=== PATIENT | female | born 1995 | race Caucasian/White ===

== ENCOUNTER 2018-02-02 02:00 | Inpatient (IN) | payer BC, MEDICAID ==
[2018-02-02] MEDS ORDERED: Zolpidem 5 MG Tab PO PRN (02:49)
[2018-02-02] MEDS ORDERED: Misoprostol 50 MCG (1/2 of 100 MCG) Tab ONE (07:12)
[2018-02-02] MEDS ORDERED: ePHEDrine 50 MG/ML SDV IVPUSH ONE (07:26)
[2018-02-02] MEDS ORDERED: Sodium Chloride 0.9% 10 ML Syringe FLUSH PRN (07:26)
[2018-02-02] MEDS ORDERED: Lactated Ringers 1,000 ML IV ONE (07:26)
[2018-02-02] MEDS ORDERED: Acetaminophen 500 MG Tab PO PRN (07:30)
[2018-02-02] MEDS ORDERED: Misoprostol 50 MCG (1/2 of 100 MCG) Tab VAG ONE (07:30)
[2018-02-02] MEDS ORDERED: fentaNYL 100 MCG/2 ML SDV IVPUSH ONE (07:30)
[2018-02-02] MEDS ORDERED: Ondansetron 4 MG/2 ML SDV IVPUSH ONE (07:31)
--- NOTE | 2018-02-02 07:38 | PCM.LDHP ---
L&D History of Present Illness - General Date of Service: 02/02/18 (labor) Admit Problem/Dx: Patient Status Order with Admit Dx/Problem 02/02/18 07:26 Patient Status [ADT] Routine Admission Diagnosis/Problem Admission Diagnosis/Problem Abdominal pain during Source of Information: Patient History Limitations: Reports: No Limitations - History of Present Illness Introduction:: This 22 year old who is 40 3/7 weeks presented with contractions during the night. Lives over an hour away so stay and slept here although not well. HAd Ambien 5 mg to help with sleep. Currently is nauseated. Was shae regularly through the night, initial CE 2/75/0. Has had adequate care and uneventful . ABO A pos HIV neg Rubella immune GBS negative Timing/Duration: Reports: minutes: (3) Location, : Reports: Abdomen Quality: Reports: Pressure Severity: Moderate Improves with: Reports: None Worsens with: Reports: None - Related Data Allergies/Adverse Reactions: Allergies Allergy/AdvReac Type Severity Reaction Status Date / Time amoxicillin Allergy Hives Verified 09/26/17 21:02 Home Medications: Home Meds [id number]/Iron Fumarate/FA/DSS [ 19 Tablet] 1 each PO BEDTIME 09/26/17 [ History] Past Medical History FLOOR SURFACER History: Reports: : 1 Para: 0 LMP (Approximate): H&P Review of Systems - Review of Systems: Review Of Systems: See Below General: Reports: No Symptoms HEENT: Reports: No Symptoms Pulmonary: Reports: No Symptoms Cardiovascular: Reports: No Symptoms Gastrointestinal: Reports: Nausea, Vomiting Genitourinary: Reports: No Symptoms Musculoskeletal: Reports: No Symptoms Skin: Reports: No Symptoms Psychiatric: Reports: No Symptoms Neurological: Reports: No Symptoms Hematologic/Lymphatic: Reports: No Symptoms Immunologic: Reports: No Symptoms L&D Exam - Exam Exam: See Below - Vital Signs Vital Signs: Last Vital Signs Temp 97.2 F 02/02/18 02:20 Pulse 62 02/02/18 02:20 Resp 20 02/02/18 02:20 BP 118/65 02/02/18 02:20 Pulse Ox 98 02/02/18 02:20 Weight: 182 lb - OB Specific Contraction Duration (sec): 80-110 Contraction Frequency (min): 1.5-6.5 Contraction Intensity: Moderate Movement: Active Heart Tones: Present Heart Rate (FHR) Variability: Moderate (6-25 bmp) Presentation: Vertex Estimated Weight: 8 pounds - Mclean Score Mclean Score Cervix Position: Anterior Mclean Score Consistency: Soft Mclean Score Effacement: >80% Mclean Score Dilation: 3-4 cm Mclean Score 's Station: -1 ,0 Mclean Score Total: 11 - Exam General: Alert, Oriented HEENT: PERRLA, Conjunctiva Clear, EACs Clear, EOMI, Hearing Intact, Mucosa Moist & [place], Nares Patent, Normal Nasal Septum, Posterior Pharynx Clear, TMs Clear Neck: Supple, Trachea Midline Lungs: Clear to Auscultation, Normal Respiratory Effort Cardiovascular: Regular Rate, Regular Rhythm GI/Abdominal Exam: Normal Bowel Sounds, Soft, Non-Tender, Pelvis Stable Rectal Exam: Normal Exam Genitourinary: Normal external exam, Cervical dilitation, Enlarged uterus Back Exam: Normal Inspection, Full Range of Motion Extremities: Normal Inspection, Normal Range of Motion, Non-Tender, No Pedal Edema, Normal Capillary Refill Skin: Warm, Dry, Intact Neurological: Cranial Nerves Intact, Reflexes Equal Bilateral Psychiatric: Alert, Normal Affect, Normal Mood - Problem List (1) SNOMED Code(s): 81258602 ICD Code: Z34.90 - ENCNTR FOR SUPRVSN OF NORMAL , UNSP, UNSP TRIMESTER Status: Acute Current Visit: Yes Qualifiers: Weeks of gestation: 40 weeks Qualified Code(s): Z3A.40 - 40 weeks gestation of Problem List Initiated/Reviewed/Updated: Yes Orders Last 24hrs: Active Orders 24 hr Category Date Time Status Patient Status [ADT] Routine ADT 02/02/18 07:26 Ordered Communication Order [RC] ASDIRECTED Care 02/02/18 07:26 Ordered Heart Tones [RC] PER UNIT ROUTINE Care 02/02/18 07:26 Ordered Non Stress Test [RC] Click to Edit Care 02/02/18 07:26 Ordered Insert Urinary Catheter [OM.PC] ASDIRECTED Care 02/02/18 07:30 Ordered Local Anesthetic Infusion Pump [RC] ASDIRECTED Care 02/02/18 07:26 Ordered May Shower [RC] ASDIRECTED Care 02/02/18 07:26 Ordered Notify Provider Vital Signs [RC] PRN Care 02/02/18 07:26 Ordered Notify Provider [RC] PRN Care 02/02/18 07:26 Ordered OB Check [OM.PC] Click to Edit Care 02/02/18 02:08 Ordered PCEA Epidural [RC] ASDIRECTED Care 02/02/18 07:26 Ordered PCEA Epidural [RC] ASDIRECTED Care 02/02/18 07:27 Ordered Up ad Cheryle [RC] ASDIRECTED Care 02/02/18 07:26 Ordered Urinary Catheter Assessment [RC] ASDIRECTED Care 02/02/18 07:27 Ordered Vital Signs [RC] PER UNIT ROUTINE Care 02/02/18 07:26 Ordered Regular Diet [DIET] Diet 02/02/18 Dinner Ordered CBC W/O DIFF,HEMOGRAM [HEME] Routine Lab 02/02/18 07:29 Ordered DRUG SCREEN, URINE [URCHEM] Routine Lab 02/02/18 07:29 Ordered Acetaminophen [Tylenol Extra Strength] Med 02/02/18 07:30 Ordered 500 mg PO Q4H PRN Lactated Ringers [Ringers, Lactated] 1,000 ml Med 02/02/18 07:26 Ordered IV .BOLUS Ondansetron [Zofran] Med 02/02/18 07:31 Once 4 mg IVPUSH ONETIME ONE Oxytocin/Normal Saline [Pitocin in NS 20 Units/1,000 ML Med 02/02/18 07:30 Ordered ] 20 unit in 1,000 ml IV ONETIME Sodium Chloride 0.9% [Saline Flush] Med 02/02/18 07:26 Ordered 10 ml FLUSH ASDIRECTED PRN Zolpidem [Ambien] Med 02/02/18 02:49 Active 5 mg PO BEDTIME PRN ePHEDrine [ePHEDrine Sulfate] Med 02/02/18 07:26 Once 5 mg IVPUSH ONETIME ONE fentaNYL [Sublimaze] Med 02/02/18 07:30 Once 100 mcg IVPUSH ONETIME ONE miSOPROStol [Cytotec] Med 02/02/18 07:30 Ordered 50 mcg VAG ONETIME Epidural Catheter Management [OM.PC] Urgent Oth 02/02/18 07:26 Ordered Saline Lock Insert [OM.PC] Routine Oth 02/02/18 07:26 Ordered Resuscitation Status Routine Resus Stat 02/02/18 07:26 Ordered Medication Orders Acetaminophen (Tylenol Extra Strength) 500 mg PO Q4H PRN PRN Reason: Abdominal Pain Ephedrine Sulfate (Ephedrine Sulfate) 5 mg IVPUSH ONETIME ONE Stop: 02/02/18 07:27 Fentanyl (Sublimaze) 100 mcg IVPUSH ONETIME ONE Stop: 02/02/18 07:31 Lactated Ringer's (Ringers, Lactated) 1,000 mls @ 999 mls/hr IV .BOLUS ONE Stop: 02/02/18 08:26 Oxytocin/Sodium Chloride (Pitocin In Ns 20 Units/1,000 Ml) 20 unit in 1,000 mls @ 999 mls/hr IV ONETIME ONE; Protocol Stop: 02/02/18 08:30 Misoprostol (Cytotec) 50 mcg VAG ONETIME JESSIKA Ondansetron HCl (Zofran) 4 mg IVPUSH ONETIME ONE Stop: 02/02/18 07:32 Sodium Chloride (Saline Flush) 10 ml FLUSH ASDIRECTED PRN PRN Reason: Keep Vein Open Zolpidem Tartrate (Ambien) 5 mg PO BEDTIME PRN PRN Reason: Insomnia Last Admin: 02/02/18 03:07 Dose: 5 mg Assessment/Plan Comment:: 02/02/18 22 yr old 40 3/7 weeks, shae regularly and starting to make cervical change. Plan: misoprostol 50 mcg vaginally placed at 0715 monitor for active labor epidural when she start to progress anticipate a vaginal delivery later today
[2018-02-02] MEDS ORDERED: Lactated Ringers 1,000 ML IV SCH (09:15)
[2018-02-02] MEDS ORDERED: ePHEDrine 50 MG/ML SDV ONE (09:33)
[2018-02-02] MEDS ORDERED: Ropivacaine 100 ML ONE (09:59)
[2018-02-02] MEDS ORDERED: Naloxone 0.4 MG/ML SDV IVPUSH PRN (10:13)
[2018-02-02] MEDS ORDERED: Ropivacaine 100 ML EPIDUR SCH (10:13)
[2018-02-02] MEDS ORDERED: ePHEDrine 50 MG/ML SDV IV PRN (10:13)
[2018-02-02] MEDS ORDERED: diphenhydrAMINE 50 MG/ML SDV IVPUSH PRN (10:13)
--- NOTE | 2018-02-02 10:45 | ANES ---
DATE OF SERVICE: 02/02/2018 INDICATION: Flaquita is a 22-year-old female patient of Ashley Oglesby. I was asked to consult the patient for labor epidural placement. I discussed with her history as well as reviewed her labs and found no contraindication to epidural placement. After risks and benefits were discussed, she was okay to proceed and consent was received. DESCRIPTION OF PROCEDURE: I had her seated at the edge of the bed. Betadine prep x3 to the lumbar region. Sterile drape was placed, 1% lidocaine skin wheal as well as deep at the L3- 4 region. A 17-gauge Tuohy was placed with loss of resistance. Negative CSF, negative heme, and negative paresthesia. I inserted catheter to 12 cm. Needle was removed. The drape was removed, and her catheter was secured after a test dose of 3 mL of 1.5% lidocaine with 1:200,000 epinephrine with negative sequelae. I then placed her in the supine position, dosed her with 12 mL of 0.2% ropivacaine, and began an infusion of that same 0.2% ropivacaine at 12 mL. She did begin to have some relief shortly after first injection. Please refer to the nurse's notes for vital signs and neuro status, which were unchanged and within normal limits. I reported off to the nurse the procedure, as well as how she tolerated it. No questions. Again, she tolerated the procedure quite well. Thank you for the consult. Kj Moscoso CRNA /[id number]
[2018-02-02] MEDS ORDERED: Lanolin 100% Cream 40 GM Tube TOP PRN (13:10)
[2018-02-02] MEDS ORDERED: Acetaminophen 325 MG Tab, 50 Tab Bulk Bottle PO PRN (13:13)
[2018-02-02] MEDS ORDERED: Ibuprofen 200 MG Tab, 24 Tab Bulk Bottle PO PRN (13:13)
--- NOTE | 2018-02-02 13:22 | PCM.DEL ---
L & D Note - General Info Date of Service: 02/02/18 (Childbirth) Mother's Due Date: 01/30/18 - Delivery Note Labor: Spontaneous Cervical Ripening Method: Misoprostil Delivery Outcome: Livebirth Delivery Method: Spontaneous Vaginal Delivery-Single Infant Delivery Mode: Spontaneous Presentation: Vertex Nuchal Cord: Present (times 2), Reduced Anesthesia Type: Epidural Amniotic Fluid Description: Clear Episiotomy Type: None Laceration: None Placenta: Intact, Spontaneous Cord: 3 Vessels Estimated Blood Loss: 0 Resuscitation Needed: No [place]: Bulb Syringe, Stimulated, Warmed, [place] Used Provider: Ashley Oglesby Score 1 min: 9 Score 5 min: 10 Second Stage Interventions: Reports: Second Nurse Reviewed Heart Tones, Encouragement Given, Pushing Effectively, Pushing, McRobert's Position Delivery Comments (Free Text/Narrative):: This 22 year old G1 now P1 who is 40 3/7 weeks delivered via at 1248 a viable female over an intact perineum in JOVANNI position with a nuchal cord times two which was reduced. The baby was placed on mother's chest skin to skin where she was dried and stimulated. She cried spontaneously of 9,10. three vessel cord. The placenta was expressed spontaneously intact, ofelia. No lacerations of the cervix, vagina, perineum or rectum were found. EBL zero mother and baby to post and nursery in stable condition. first stage 3846-3906 Second stage 5071-8681 third stage 0770-7753 Induction Criteria - Mclean Score Mclean Score Dilation: 3-4 cm Mclean Score Effacement: >80% Mclean Score Infant's Station: -1 ,0 Mclean Score Consistency: Soft Mclean Score Cervix Position: Anterior Mclean Score Total: 11 Mclean Score Presenting Part: Reports: Cephalic - Augmentation Estimated Pelvis: Reports: Adequate Weight Estimated:: Reports: AGA Reassuring Monitoring Strip: Yes Absence of Tachy Systole: Yes - General Info Date of Service: 02/02/18 Admission Dx/Problem (Free Text): Patient Status Order with Admit Dx/Problem 02/02/18 07:26 Patient Status [ADT] Routine Admission Diagnosis/Problem Admission Diagnosis/Problem Abdominal pain during Functional Status: Reports: Pain Controlled - Review of Systems General: Reports: No Symptoms HEENT: Reports: No Symptoms Pulmonary: Reports: No Symptoms Cardiovascular: Reports: No Symptoms Gastrointestinal: Reports: No Symptoms Genitourinary: Reports: No Symptoms Musculoskeletal: Reports: No Symptoms Skin: Reports: No Symptoms Neurological: Reports: No Symptoms Psychiatric: Reports: No Symptoms - Patient Data Vitals - Most Recent: Last Vital Signs Temp 97.1 F 02/02/18 07:25 Pulse 70 02/02/18 10:05 Resp 18 02/02/18 07:25 BP 105/56 L 02/02/18 10:05 Pulse Ox 99 02/02/18 10:05 Weight - Most Recent: 182 lb 0.006 oz I&O - Last 24 Hours: Intake & Output 02/01/18 02/02/18 02/02/18 22:59 06:59 14:59 Output Total 50 Balance -50 Lab Results Last 24 Hours: Laboratory Results - last 24 hr 02/02/18 02/02/18 Range/Units 07:29 07:29 WBC 12.0 H (4.5-11.0) K/uL RBC 4.69 (3.30-5.50) M/uL Hgb 13.8 (12.0-15.0) g/dL Hct 40.9 (36.0-48.0) % MCV 87 (80-98) fL MCH 29 (27-31) pg MCHC 34 (32-36) % Plt Count 241 (150-400) K/uL Urine Opiates Screen Negative (NEGATIVE) Ur Oxycodone Screen Negative (NEGATIVE) Urine Methadone Screen Negative (NEGATIVE) Ur Propoxyphene Screen Negative (NEGATIVE) Ur Barbiturates Screen Negative (NEGATIVE) Ur Tricyclics Screen Negative (NEGATIVE) Ur Phencyclidine Scrn Negative (NEGATIVE) Ur Amphetamine Screen Negative (NEGATIVE) U Methamphetamines Scrn Negative (NEGATIVE) Urine MDMA Screen Negative (NEGATIVE) U Benzodiazepines Scrn Negative (NEGATIVE) U Cocaine Metab Screen Negative (NEGATIVE) U Marijuana (THC) Screen Negative (NEGATIVE) Med Orders - Current: Current Medications Acetaminophen (Tylenol Extra Strength) 500 mg PO Q4H PRN PRN Reason: Abdominal Pain Diphenhydramine HCl (Benadryl) 25 mg IVPUSH Q6H PRN PRN Reason: ITCHING Emollient Ointment (Lansinoh Hpa) 1 gm TOP ASDIRECTED PRN PRN Reason: Sore Nipples Ephedrine Sulfate (Ephedrine Sulfate) 5 - 10 mg IV ASDIRECTED PRN PRN Reason: Systolic BP less than 100 Lactated Ringer's (Ringers, Lactated) 1,000 mls @ 100 mls/hr IV ASDIRECTED JESSIKA Last Admin: 02/02/18 09:42 Dose: 100 mls/hr Ropivacaine (Naropin 0.2%) 100 mls @ 0 mls/hr EPIDUR ASDIRECTED JESSIKA; Protocol Naloxone HCl (Narcan) 0.1 mg IVPUSH Q5M PRN PRN Reason: IF RESP RATE LESS THAN 6 Sodium Chloride (Saline Flush) 10 ml FLUSH ASDIRECTED PRN PRN Reason: Keep Vein Open Zolpidem Tartrate (Ambien) 5 mg PO BEDTIME PRN PRN Reason: Insomnia Last Admin: 02/02/18 03:07 Dose: 5 mg Discontinued Medications Ephedrine Sulfate (Ephedrine Sulfate) 5 mg IVPUSH ONETIME ONE Stop: 02/02/18 07:27 Ephedrine Sulfate (Ephedrine Sulfate) Confirm Administered Dose 50 mg .ROUTE .STK-MED ONE Stop: 02/02/18 09:34 Last Admin: 02/02/18 12:04 Dose: Not Given Fentanyl (Sublimaze) 100 mcg IVPUSH ONETIME ONE Stop: 02/02/18 07:31 Lactated Ringer's (Ringers, Lactated) 1,000 mls @ 999 mls/hr IV .BOLUS ONE Stop: 02/02/18 08:26 Last Admin: 02/02/18 08:04 Dose: 999 mls/hr Oxytocin/Sodium Chloride (Pitocin In Ns 20 Units/1,000 Ml) 20 unit in 1,000 mls @ 999 mls/hr IV ONETIME ONE; Protocol Stop: 02/02/18 08:30 Ropivacaine (Naropin 0.2%) Confirm Administered Dose 100 mls @ as directed .ROUTE .STK-MED ONE Stop: 02/02/18 10:00 Misoprostol (Cytotec) Confirm Administered Dose 50 mcg .ROUTE .STK-MED ONE Stop: 02/02/18 07:13 Last Admin: 02/02/18 07:34 Dose: Not Given Misoprostol (Cytotec) 50 mcg VAG ONETIME ONE Stop: 02/02/18 07:31 Last Admin: 02/02/18 07:18 Dose: 50 mcg Ondansetron HCl (Zofran) 4 mg IVPUSH ONETIME ONE Stop: 02/02/18 07:32 - Exam General: Alert, Oriented HEENT: Pupils Equal, Pupils Reactive, EOMI, Mucous Membr. Moist/[place] Neck: Supple Lungs: Clear to Auscultation, Normal Respiratory Effort Cardiovascular: Regular Rate, Regular Rhythm GI/Abdominal Exam: Normal Bowel Sounds, Soft, Non-Tender, No Organomegaly, No Distention, No Abnormal Bruit, No Mass, Pelvis Stable (Female) Exam: Normal External Exam, Cervical Dilatation, Enlarged Uterus, Heart Tones, Vaginal Bleeding Back Exam: Normal Inspection, Full Range of Motion Extremities: Normal Inspection, Normal Range of Motion, Non-Tender, No Pedal Edema, Normal Capillary Refill Skin: Warm, Dry, Intact Wound/Incisions: Healing Well Neurological: No New Focal Deficit Psy/Mental Status: Alert, Normal Affect, Normal Mood - Problem List & Annotations (1) SNOMED Code(s): 96705967 Code(s): Z34.90 - ENCNTR FOR SUPRVSN OF NORMAL , UNSP, UNSP TRIMESTER Status: Acute Current Visit: Yes Qualifiers: Weeks of gestation: 40 weeks Qualified Code(s): Z3A.40 - 40 weeks gestation of (2) Normal labor and delivery SNOMED Code(s): 70503692, 048712450 Code(s): O80 - ENCOUNTER FOR FULL-TERM UNCOMPLICATED DELIVERY Status: Acute Current Visit: Yes (3) () SNOMED Code(s): 739918466 Code(s): Z78.9 - OTHER SPECIFIED HEALTH STATUS Status: Acute Current Visit: Yes - Problem List Review Problem List Initiated/Reviewed/Updated: Yes - My Orders Last 24 Hours: My Active Orders 02/02/18 02:08 OB Check [OM.PC] Click to Edit 02/02/18 02:49 Zolpidem [Ambien] 5 mg PO BEDTIME PRN 02/02/18 07:26 Communication Order [RC] ASDIRECTED Local Anesthetic Infusion Pump [RC] ASDIRECTED May Shower [RC] ASDIRECTED Notify Provider Vital Signs [RC] PRN Notify Provider [RC] PRN Up ad Cheryle [RC] ASDIRECTED Vital Signs [RC] Q4H Sodium Chloride 0.9% [Saline Flush] 10 ml FLUSH ASDIRECTED PRN Epidural Catheter Management [OM.PC] Urgent Saline Lock Insert [OM.PC] Routine Resuscitation Status Routine 02/02/18 07:27 PCEA Epidural [RC] ASDIRECTED Urinary Catheter Assessment [RC] ASDIRECTED 02/02/18 07:30 Insert Urinary Catheter [OM.PC] ASDIRECTED Acetaminophen [Tylenol Extra Strength] 500 mg PO Q4H PRN 02/02/18 09:15 Lactated Ringers [Ringers, Lactated] 1,000 ml IV ASDIRECTED 02/02/18 13:10 Lanolin [Lansinoh HPA] 1 gm TOP ASDIRECTED PRN Assess Uterine Involution [WOMSER] Per Unit Routine DVT/VTE Prophylaxis Reflex [OM.PC] Routine 02/02/18 13:11 Patient Status [ADT] Routine Vital Signs [RC] PFP 02/02/18 13:12 Antiembolic Devices [RC] .Routine VTE/DVT Education [RC] Click to Edit Ice Therapy [OM.PC] Per Unit Routine Perineal Care [OM.PC] Per Unit Routine Peripheral IV Discontinue [OM.PC] Routine Sitz Bath [OM.PC] Per Unit Routine 02/02/18 13:13 Acetaminophen [Tylenol Bulk Bottle] 325 mg PO Q4H PRN Ibuprofen [Motrin Bulk Bottle] 600 mg PO Q6H PRN 02/02/18 Dinner Regular Diet [DIET] 02/03/18 05:11 CBC WITH AUTO DIFF [HEME] AM - Assessment Assessment:: 02/02/18 22 yr old 40 3/7 without complications breast feeding - Plan Plan:: 02/02/18 22 yr old 40 3/7 weeks, shae regularly and starting to make cervical change. Plan: misoprostol 50 mcg vaginally placed at 0715 monitor for active labor epidural when she start to progress anticipate a vaginal delivery later today 02/02/18 Routine cares 24-48 hour stay support cbc in am
--- NOTE | 2018-02-03 08:55 | PCM.PNPP ---
- General Info Date of Service: 02/03/18 (PPD 1) Admission Dx/Problem (Free Text): Patient Status Order with Admit Dx/Problem 02/02/18 07:26 Patient Status [ADT] Routine Admission Diagnosis/Problem Admission Diagnosis/Problem Abdominal pain during Functional Status: Reports: Pain Controlled - Review of Systems General: Reports: No Symptoms HEENT: Reports: No Symptoms Pulmonary: Reports: No Symptoms Cardiovascular: Reports: No Symptoms Gastrointestinal: Reports: No Symptoms Genitourinary: Reports: No Symptoms Musculoskeletal: Reports: No Symptoms Skin: Reports: No Symptoms Neurological: Reports: No Symptoms Psychiatric: Reports: No Symptoms Systems Review Comment:: flow light, mild cramping - Patient Data Vital Signs - Most Recent: Last Vital Signs Temp 97.2 F 02/03/18 08:29 Pulse 74 02/03/18 08:29 Resp 16 02/03/18 08:29 BP 113/64 02/03/18 08:29 Pulse Ox 99 02/03/18 08:29 Weight - Most Recent: 182 lb 0.006 oz I&O - Last 24 Hours: Intake & Output 02/02/18 02/03/18 02/03/18 22:59 06:59 14:59 Intake Total 2403 400 Output Total 400 Balance 2002 Lab Results - Last 24 Hours: Laboratory Results - last 24 hr 02/03/18 Range/Units 05:00 WBC 13.2 H (4.5-11.0) K/uL RBC 4.23 (3.30-5.50) M/uL Hgb 12.6 (12.0-15.0) g/dL Hct 37.7 (36.0-48.0) % MCV 89 (80-98) fL MCH 30 (27-31) pg MCHC 33 (32-36) % Plt Count 199 (150-400) K/uL Neut % (Auto) 76 H (36-66) % Lymph % (Auto) 14 L (24-44) % [place] % (Auto) 8 H (2-6) % Eos % (Auto) 1 L (2-4) % Baso % (Auto) 0 (0-1) % Med Orders - Current: Current Medications Acetaminophen (Tylenol Bulk Bottle) 325 - 650 mg PO Q4H PRN PRN Reason: Pain Last Admin: 02/02/18 15:04 Dose: 325 mg Diphenhydramine HCl (Benadryl) 25 mg IVPUSH Q6H PRN PRN Reason: ITCHING Emollient Ointment (Lansinoh Hpa) 0 gm TOP ASDIRECTED PRN PRN Reason: Sore Nipples Last Admin: 02/02/18 15:03 Dose: 1 applic Ibuprofen (Motrin Bulk Bottle) 600 mg PO Q6H PRN PRN Reason: Pain Last Admin: 02/02/18 15:04 Dose: 600 mg Sodium Chloride (Saline Flush) 10 ml FLUSH ASDIRECTED PRN PRN Reason: Keep Vein Open Zolpidem Tartrate (Ambien) 5 mg PO BEDTIME PRN PRN Reason: Insomnia Last Admin: 02/02/18 03:07 Dose: 5 mg Discontinued Medications Acetaminophen (Tylenol Extra Strength) 500 mg PO Q4H PRN PRN Reason: Abdominal Pain Ephedrine Sulfate (Ephedrine Sulfate) 5 mg IVPUSH ONETIME ONE Stop: 02/02/18 07:27 Last Admin: 02/02/18 14:53 Dose: Not Given Ephedrine Sulfate (Ephedrine Sulfate) Confirm Administered Dose 50 mg .ROUTE .STK-MED ONE Stop: 02/02/18 09:34 Last Admin: 02/02/18 12:04 Dose: Not Given Ephedrine Sulfate (Ephedrine Sulfate) 5 - 10 mg IV ASDIRECTED PRN PRN Reason: Systolic BP less than 100 Fentanyl (Sublimaze) 100 mcg IVPUSH ONETIME ONE Stop: 02/02/18 07:31 Last Admin: 02/02/18 14:53 Dose: Not Given Lactated Ringer's (Ringers, Lactated) 1,000 mls @ 999 mls/hr IV .BOLUS ONE Stop: 02/02/18 08:26 Last Admin: 02/02/18 08:04 Dose: 999 mls/hr Oxytocin/Sodium Chloride (Pitocin In Ns 20 Units/1,000 Ml) 20 unit in 1,000 mls @ 999 mls/hr IV ONETIME ONE; Protocol Stop: 02/02/18 08:30 Last Titration: 02/02/18 13:23 Dose: 125 mls/hr Lactated Ringer's (Ringers, Lactated) 1,000 mls @ 100 mls/hr IV ASDIRECTED JESSIKA Last Admin: 02/02/18 09:42 Dose: 100 mls/hr Ropivacaine (Naropin 0.2%) Confirm Administered Dose 100 mls @ as directed .ROUTE .STK-MED ONE Stop: 02/02/18 10:00 Ropivacaine (Naropin 0.2%) 100 mls @ 0 mls/hr EPIDUR ASDIRECTED [facility]; Protocol Misoprostol (Cytotec) Confirm Administered Dose 50 mcg .ROUTE .STK-MED ONE Stop: 02/02/18 07:13 Last Admin: 02/02/18 07:34 Dose: Not Given Misoprostol (Cytotec) 50 mcg VAG ONETIME ONE Stop: 02/02/18 07:31 Last Admin: 02/02/18 07:18 Dose: 50 mcg Naloxone HCl (Narcan) 0.1 mg IVPUSH Q5M PRN PRN Reason: IF RESP RATE LESS THAN 6 Ondansetron HCl (Zofran) 4 mg IVPUSH ONETIME ONE Stop: 02/02/18 07:32 Last Admin: 02/02/18 14:54 Dose: Not Given - Infant Interaction Disposition, : in Room with Family Interaction: Holding Infant Feeding: Attempted ; Nursed Fair/Poor Support Person: Significant Other - Recovery Exam Fundal Tone: Firm Fundal Level: At Umbilicus Fundal Placement: Midline Lochia Amount: Small Lochia Color: Rubra/Red Perineum Description: Intact, Minimal Bruising/Swelling Episiotomy/Laceration: None Bladder Status: Voiding - Exam General: Alert, Oriented HEENT: Pupils Equal, Pupils Reactive Neck: Supple Lungs: Clear to Auscultation, Normal Respiratory Effort Cardiovascular: Regular Rate, Regular Rhythm GI/Abdominal Exam: Soft, Non-Tender Extremities: Normal Inspection, Normal Range of Motion, No Pedal Edema Skin: Warm, Dry Neurological: No New Focal Deficit Psy/Mental Status: Alert, Normal Affect, Normal Mood - Problem List & Annotations (1) SNOMED Code(s): 98187543 Code(s): Z34.90 - ENCNTR FOR SUPRVSN OF NORMAL , UNSP, UNSP TRIMESTER Status: Acute Current Visit: Yes Qualifiers: Weeks of gestation: 40 weeks Qualified Code(s): Z3A.40 - 40 weeks gestation of (2) Normal labor and delivery SNOMED Code(s): 64545912, 162205180 Code(s): O80 - ENCOUNTER FOR FULL-TERM UNCOMPLICATED DELIVERY Status: Acute Current Visit: Yes (3) (infant) SNOMED Code(s): 875904701 Code(s): Z78.9 - OTHER SPECIFIED HEALTH STATUS Status: Acute Current Visit: Yes - Problem List Review Problem List Initiated/Reviewed/Updated: Yes - My Orders Last 24 Hours: My Active Orders 02/02/18 13:10 Lanolin [Lansinoh HPA] 0 gm TOP ASDIRECTED PRN Assess Uterine Involution [WOMSER] Per Unit Routine DVT/VTE Prophylaxis Reflex [OM.PC] Routine 02/02/18 13:11 Patient Status [ADT] Routine 02/02/18 13:12 Antiembolic Devices [RC] .Routine VTE/DVT Education [RC] Click to Edit Ice Therapy [OM.PC] Per Unit Routine Perineal Care [OM.PC] Per Unit Routine Peripheral IV Discontinue [OM.PC] Routine Sitz Bath [OM.PC] Per Unit Routine 02/02/18 13:13 Acetaminophen [Tylenol Bulk Bottle] 325 - 650 mg PO Q4H PRN Ibuprofen [Motrin Bulk Bottle] 600 mg PO Q6H PRN 02/02/18 Dinner Regular Diet [DIET] - Assessment Assessment:: 02/02/18 22 yr old 40 3/7 without complications breast feeding 01/03/18 Feeling well Needs help with Mood happy Flow light voiding without problem HGb 12.6 - Plan Plan:: 02/02/18 22 yr old 40 3/7 weeks, shae regularly and starting to make cervical change. Plan: misoprostol 50 mcg vaginally placed at 0715 monitor for active labor epidural when she start to progress anticipate a vaginal delivery later today 02/02/18 Routine cares 24-48 hour stay support cbc in am 02/03/18 Lots of work on today Home tomorrow
--- NOTE | 2018-02-04 08:03 | PCM.PNPP ---
- General Info Date of Service: 02/04/18 (PPD 2 D/C) Admission Dx/Problem (Free Text): Patient Status Order with Admit Dx/Problem 02/02/18 07:26 Patient Status [ADT] Routine Admission Diagnosis/Problem Admission Diagnosis/Problem Abdominal pain during Functional Status: Reports: Pain Controlled - Review of Systems General: Reports: No Symptoms HEENT: Reports: No Symptoms Pulmonary: Reports: No Symptoms Cardiovascular: Reports: No Symptoms Gastrointestinal: Reports: No Symptoms Genitourinary: Reports: No Symptoms Musculoskeletal: Reports: No Symptoms Skin: Reports: No Symptoms Neurological: Reports: No Symptoms Psychiatric: Reports: No Symptoms - General Info Date of Service: 02/04/18 - Patient Data Vital Signs - Most Recent: Last Vital Signs Temp 96.8 F 02/04/18 07:14 Pulse 64 02/04/18 07:14 Resp 16 02/04/18 07:14 BP 117/76 02/04/18 07:14 Pulse Ox 100 02/04/18 07:14 Weight - Most Recent: 182 lb 0.006 oz I&O - Last 24 Hours: Intake & Output 02/03/18 02/04/18 02/04/18 22:59 06:59 14:59 Intake Total 480 Balance 480 Med Orders - Current: Current Medications Acetaminophen (Tylenol Bulk Bottle) 325 - 650 mg PO Q4H PRN PRN Reason: Pain Last Admin: 02/02/18 15:04 Dose: 325 mg Diphenhydramine HCl (Benadryl) 25 mg IVPUSH Q6H PRN PRN Reason: ITCHING Emollient Ointment (Lansinoh Hpa) 0 gm TOP ASDIRECTED PRN PRN Reason: Sore Nipples Last Admin: 02/02/18 15:03 Dose: 1 applic Ibuprofen (Motrin Bulk Bottle) 600 mg PO Q6H PRN PRN Reason: Pain Last Admin: 02/02/18 15:04 Dose: 600 mg Sodium Chloride (Saline Flush) 10 ml FLUSH ASDIRECTED PRN PRN Reason: Keep Vein Open Zolpidem Tartrate (Ambien) 5 mg PO BEDTIME PRN PRN Reason: Insomnia Last Admin: 02/02/18 03:07 Dose: 5 mg Discontinued Medications Acetaminophen (Tylenol Extra Strength) 500 mg PO Q4H PRN PRN Reason: Abdominal Pain Ephedrine Sulfate (Ephedrine Sulfate) 5 mg IVPUSH ONETIME ONE Stop: 02/02/18 07:27 Last Admin: 02/02/18 14:53 Dose: Not Given Ephedrine Sulfate (Ephedrine Sulfate) Confirm Administered Dose 50 mg .ROUTE .STK-MED ONE Stop: 02/02/18 09:34 Last Admin: 02/02/18 12:04 Dose: Not Given Ephedrine Sulfate (Ephedrine Sulfate) 5 - 10 mg IV ASDIRECTED PRN PRN Reason: Systolic BP less than 100 Fentanyl (Sublimaze) 100 mcg IVPUSH ONETIME ONE Stop: 02/02/18 07:31 Last Admin: 02/02/18 14:53 Dose: Not Given Lactated Ringer's (Ringers, Lactated) 1,000 mls @ 999 mls/hr IV .BOLUS ONE Stop: 02/02/18 08:26 Last Admin: 02/02/18 08:04 Dose: 999 mls/hr Oxytocin/Sodium Chloride (Pitocin In Ns 20 Units/1,000 Ml) 20 unit in 1,000 mls @ 999 mls/hr IV ONETIME ONE; Protocol Stop: 02/02/18 08:30 Last Titration: 02/02/18 13:23 Dose: 125 mls/hr Lactated Ringer's (Ringers, Lactated) 1,000 mls @ 100 mls/hr IV ASDIRECTED JESSIKA Last Admin: 02/02/18 09:42 Dose: 100 mls/hr Ropivacaine (Naropin 0.2%) Confirm Administered Dose 100 mls @ as directed .ROUTE .STK-MED ONE Stop: 02/02/18 10:00 Ropivacaine (Naropin 0.2%) 100 mls @ 0 mls/hr EPIDUR ASDIRECTED [facility]; Protocol Misoprostol (Cytotec) Confirm Administered Dose 50 mcg .ROUTE .STK-MED ONE Stop: 02/02/18 07:13 Last Admin: 02/02/18 07:34 Dose: Not Given Misoprostol (Cytotec) 50 mcg VAG ONETIME ONE Stop: 02/02/18 07:31 Last Admin: 02/02/18 07:18 Dose: 50 mcg Naloxone HCl (Narcan) 0.1 mg IVPUSH Q5M PRN PRN Reason: IF RESP RATE LESS THAN 6 Ondansetron HCl (Zofran) 4 mg IVPUSH ONETIME ONE Stop: 02/02/18 07:32 Last Admin: 02/02/18 14:54 Dose: Not Given - Infant Interaction Infant Disposition, : [place] in Room with Family Interaction: Holding Infant Feeding: Breastfed Infant; Nursed Well Support Person: Significant Other - Recovery Exam Fundal Tone: Firm Fundal Level: 2 Fingerbreadths Below Umbilicus Fundal Placement: Midline Lochia Amount: Small Lochia Color: Rubra/Red Perineum Description: Intact, Minimal Bruising/Swelling Episiotomy/Laceration: None Bladder Status: Voiding Urinary Elimination: Voided - Exam General: Alert, Oriented HEENT: Pupils Equal Neck: Supple Lungs: Clear to Auscultation, Normal Respiratory Effort Cardiovascular: Regular Rate, Regular Rhythm GI/Abdominal Exam: Normal Bowel Sounds, Soft, Non-Tender, No Distention Extremities: Normal Inspection, Normal Range of Motion, Non-Tender, No Pedal Edema, Normal Capillary Refill Skin: Warm, Dry, Intact Wound/Incisions: Healing Well Neurological: No New Focal Deficit Psy/Mental Status: Alert, Normal Affect, Normal Mood - Problem List & Annotations (1) SNOMED Code(s): 66856447 Code(s): Z34.90 - ENCNTR FOR SUPRVSN OF NORMAL , UNSP, UNSP TRIMESTER Status: Acute Current Visit: Yes Qualifiers: Weeks of gestation: 40 weeks Qualified Code(s): Z3A.40 - 40 weeks gestation of (2) Normal labor and delivery SNOMED Code(s): 92801579, 978771602 Code(s): O80 - ENCOUNTER FOR FULL-TERM UNCOMPLICATED DELIVERY Status: Acute Current Visit: Yes (3) (infant) SNOMED Code(s): 056743945 Code(s): Z78.9 - OTHER SPECIFIED HEALTH STATUS Status: Acute Current Visit: Yes - Problem List Review Problem List Initiated/Reviewed/Updated: Yes - Assessment Assessment:: 02/02/18 22 yr old 40 3/7 without complications breast feeding 02/03/18 Feeling well Needs help with Mood happy Flow light voiding without problem HGb 12.6 02/04/18 as improved and latching to good. Light flow, mild cramping feeling good and ready for discharge - Plan Plan:: 02/02/18 22 yr old 40 3/7 weeks, shae regularly and starting to make cervical change. Plan: misoprostol 50 mcg vaginally placed at 0715 monitor for active labor epidural when she start to progress anticipate a vaginal delivery later today 02/02/18 Routine cares 24-48 hour stay support cbc in am 02/03/18 Lots of work on today Home tomorrow 02/04/18 Home today see me the first week of Nov for a post visit
== END 2018-02-04 09:05 | disposition home or self-care (01) | DRG 560 ==
LOC: JP.OBCHECK 02:00 → JP.OB 07:16 → OBSVTOIN 12:48 → JP.OB 12:48 → JP.MS 18:34
PROVIDERS: ADMIT Nurse Practitioner Family; ATTEND Nurse Practitioner Family
PROC: 10E0XZZ Delivery of Products of Conception, External Approach (ICD-10-PCS; principal; 2018-02-02)
PROC: 00HU33Z Insertion of Infusion Device into Spinal Canal, Percutaneous Approach (ICD-10-PCS; 2018-02-02)
DX: O69.81X0 Labor and delivery complicated by cord around neck, without compression, not applicable or unspecified (principal); Z3A.40 40 weeks gestation of pregnancy; Z37.0 Single live birth; Z88.1 Allergy status to other antibiotic agents
CPT/HCPCS: 36415; 51702; 59409; 80305-QW; 85025; 85027; 99211; A9270-GY; J2590; J2795; J7120

== ENCOUNTER 2021-02-22 07:11 | Inpatient (IN) | payer BC, MEDICAID ==
[2021-02-22] MEDS ORDERED: Misoprostol 50 MCG (1/2 of 100 MCG) Tab VAG ONE ×2 (07:21→07:22)
[2021-02-22] MEDS ORDERED: Ondansetron 4 MG/2 ML SDV IV PRN (08:12)
[2021-02-22] MEDS ORDERED: Calcium Carbonate 500 MG Tab.Chew PO PRN (08:12)
[2021-02-22] MEDS ORDERED: Sodium Chloride 0.9% 10 ML Syringe FLUSH PRN (08:12)
[2021-02-22] MEDS ORDERED: Lactated Ringers 1,000 ML IV SCH (08:15)
--- NOTE | 2021-02-22 08:25 | PCM.LDHP ---
L&D History of Present Illness - General Date of Service: 02/22/21 Admit Problem/Dx: Admission Diagnosis/Problem Admission Diagnosis/Problem 02/22/21 08:15 Induction of labor Source of Information: Patient History Limitations: Reports: No Limitations - History of Present Illness Introduction:: 02/23/12 Flaquita is a here at 40/4 weeks gestation for induction of labor. She is A pos blood type, GBS negative, rubella immune, Hep B/C negative, RPR negative, and recieved her Tdap at 28 weeks.She reports having contractions on and off over the last few days but nothing consistent. This morning around 0430 she said her contractions had picked up in intensity but then slowly went away. She did note some bloody show this morning. SVE on admission is 2/70/-2 soft and anterior for a Mclean score of 8. She is shae every 8 minutes on ad mission. EFM shows a Category 1 tracing. Timing/Duration: Reports: seconds:, minutes: (8), gradual onset, intermittent Location, : Reports: Abdomen Severity: Mild Associated Symptoms: Reports: vaginal discharge, mild amount (some bloody show this morning) - Related Data Allergies/Adverse Reactions: Allergies Allergy/AdvReac Type Severity Reaction Status Date / Time amoxicillin Allergy Hives Verified 02/22/21 07:32 Penicillins Allergy Hives Verified 02/22/21 07:32 Home Medications: Home Meds Prenat 115/Iron Fum/Folic/Dss [ 19 Tablet] 1 each PO BEDTIME 09/26/17 [History] Calcium Carbonate [Calcium] 500 mg PO DAILY 02/22/21 [History] Past Medical History Cardiovascular History: Reports: Arrhythmia [employer] History: Reports: Social & Family History - Family History Family Medical History: No Pertinent Family History - Tobacco Use Tobacco Use Status *Q: Never Tobacco User Second Hand Smoke Exposure: No - Caffeine Use Caffeine Use: Reports: Coffee Other Caffeine Use: occassionally - Recreational Drug Use Recreational Drug Use: No H&P Review of Systems - Review of Systems: Review Of Systems: See Below General: Reports: No Symptoms HEENT: Reports: No Symptoms Pulmonary: Reports: No Symptoms Cardiovascular: Reports: No Symptoms Gastrointestinal: Reports: No Symptoms Genitourinary: Reports: No Symptoms Musculoskeletal: Reports: No Symptoms Skin: Reports: No Symptoms Psychiatric: Reports: No Symptoms Neurological: Reports: No Symptoms Hematologic/Lymphatic: Reports: No Symptoms Immunologic: Reports: No Symptoms L&D Exam - Exam Exam: See Below - Vital Signs Weight: 182 lb - OB Specific Contraction Frequency (min): 8 Contraction Intensity: Mild Movement: Active Heart Tones: Present Heart Rate (FHR) Variability: Moderate (6-25 bpm) Presentation: Vertex - Mclean Score Mclean Score Cervix Position: Anterior Mclean Score Consistency: Soft Mclean Score Effacement: 51-70% Mclean Score Dilation: 1-2 cm Mclean Score 's Station: -2 Mclean Score Total: 8 - Exam General: Alert, Oriented HEENT: PERRLA, Conjunctiva Clear, EACs Clear, EOMI, Hearing Intact, Mucosa Moist & [place], Nares Patent, Normal Nasal Septum, Posterior Pharynx Clear, TMs Clear Neck: Supple, Trachea Midline Lungs: Clear to Auscultation, Normal Respiratory Effort Cardiovascular: Regular Rate, Regular Rhythm GI/Abdominal Exam: Normal Bowel Sounds, Soft, Non-Tender, No Organomegaly, No Distention, No Abnormal Bruit, No Mass, Pelvis Stable Rectal Exam: Normal Exam, Normal Rectal Tone Genitourinary: Normal external exam Back Exam: Normal Inspection, Full Range of Motion Extremities: Normal Inspection, Normal Range of Motion, Non-Tender, No Pedal Edema, Normal Capillary Refill Skin: Warm, Dry, Intact Neurological: Cranial Nerves Intact, Reflexes Equal Bilateral Psychiatric: Alert, Normal Affect, Normal Mood - Patient Data Lab Results Last 24 hrs: Laboratory Results - last 24 hr 02/22/21 02/22/21 02/22/21 Range/Units 07:20 07:21 07:22 WBC 11.4 H (4.5-11.0) K/uL RBC 4.17 (3.30-5.50) M/uL Hgb 11.8 L (12.0-15.0) g/dL Hct 35.9 L (36.0-48.0) % MCV 86 (80-98) fL MCH 28 (27-31) pg MCHC 33 (32-36) % Plt Count 233 (150-400) K/uL Neut % (Auto) 79.1 H (36-66) % Lymph % (Auto) 14.3 L (24-44) % [place] % (Auto) 5.9 (2-6) % Eos % (Auto) 0.4 L (2-4) % Baso % (Auto) 0.3 (0-1) % Urine Color Yellow (YELLOW) Urine Appearance Clear (CLEAR) Urine pH 7.0 (5.0-8.0) Ur Specific [place] 1.020 (1.008-1.030) Urine Protein Negative (NEGATIVE) mg/dL Urine Glucose (UA) Negative (NEGATIVE) mg/dL Urine Ketones Negative (NEGATIVE) mg/dL Urine Occult Blood Trace-intact H (NEGATIVE) Urine Nitrite Negative (NEGATIVE) Urine Bilirubin Negative (NEGATIVE) Urine Urobilinogen 0.2 (0.2-1.0) EU/dL Ur Leukocyte Esterase Moderate H (NEGATIVE) Urine RBC 0-5 (0-5) Urine WBC 5-10 H (0-5) Ur Epithelial Cells Moderate Amorphous Sediment Not seen Urine Bacteria Few Urine Mucus Not seen Urine Opiates Screen Negative (NEGATIVE) Ur Oxycodone Screen Negative (NEGATIVE) Urine Methadone Screen Negative (NEGATIVE) Ur Propoxyphene Screen Negative (NEGATIVE) Ur Barbiturates Screen Negative (NEGATIVE) Ur Tricyclics Screen Negative (NEGATIVE) Ur Phencyclidine Scrn Negative (NEGATIVE) Ur Amphetamine Screen Negative (NEGATIVE) U Methamphetamines Scrn Negative (NEGATIVE) Urine MDMA Screen Negative (NEGATIVE) U Benzodiazepines Scrn Negative (NEGATIVE) U Cocaine Metab Screen Negative (NEGATIVE) U Marijuana (THC) Screen Negative (NEGATIVE) Result Diagrams: 02/22/21 07:22 - Problem List (1) Encounter for induction of labor SNOMED Code(s): 018976265 ICD Code: Z34.90 - ENCNTR FOR SUPRVSN OF NORMAL , UNSP, UNSP TRIMESTER Status: Acute Current Visit: Yes (2) SNOMED Code(s): 23949473 ICD Code: Z34.90 - ENCNTR FOR SUPRVSN OF NORMAL , UNSP, UNSP TRIMESTER Status: Acute Current Visit: No Qualifiers: Weeks of gestation: 40 weeks Qualified Code(s): Z3A.40 - 40 weeks gestation of Problem List Initiated/Reviewed/Updated: Yes Orders Last 24hrs: Active Orders 24 hr Category Date Time Status OB Check [OM.PC] Click To Edit Care 02/22/21 07:20 Ordered Assessment/Plan Comment:: 02/22/21 Assessment: here at 40weeks 4 days Induction of labor Mclean score of 8 GBS negative Intends to breastfeed Desires epidural at some point in labor Adequate partner support Plan: Begin pitocin per protocol Continuous EFM Encourage oral hydration and nutrition Encourage walking, movement, and position change Recheck cervix in a few hours
[2021-02-22] MEDS ORDERED: fentaNYL 100 MCG/2 ML SDV ONE (13:05)
[2021-02-22] MEDS ORDERED: Benzocaine 20% Top Spray 56 GM Bottle TOP PRN (13:15)
[2021-02-22] MEDS ORDERED: Docusate Sodium 100 MG Cap PO PRN (13:15)
[2021-02-22] MEDS ORDERED: Lanolin 100% Cream 40 GM Tube TOP PRN (13:15)
[2021-02-22] MEDS ORDERED: Ibuprofen 200 MG Tab, 24 Tab Bulk Bottle PO PRN (13:17)
[2021-02-22] MEDS ORDERED: Acetaminophen 325 MG Tab, 50 Tab Bulk Bottle PO PRN (13:17)
--- NOTE | 2021-02-22 13:25 | PCM.DEL ---
<Jackie Calvin A - Last Filed: 02/22/21 13:19> L & D Note - General Info Date of Service: 02/22/21 Mother's Due Date: 02/18/21 - Delivery Note Labor: Induced by Oxytocin Cervical Ripening Method: Oxytocin Delivery Outcome: Livebirth Infant Delivery Method: Spontaneous Vaginal Delivery-Single Delivery Mode: Spontaneous Presentation: Left Occiput Anterior (JOVANNI) Nuchal Cord: Present, Reduced (Double nuchal) Anesthesia Type: Nitrous Oxide Amniotic Fluid Description: Clear Episiotomy Type: None Laceration: None Placenta: Intact, Spontaneous Cord: 3 Vessels Estimated Blood Loss: 200 Resuscitation Needed: No : Stimulated, [place] Used Score 1 min: 8 Score 5 min: 9 Second Stage Interventions: Reports: Second Nurse Assessed Progress of Descent, Second Nurse Reviewed Contraction Pattern, Second Nurse Reviewed Heart Tones, Encouragement Given, Pushing Effectively, Pushing, Knee Chest Position, Pushing, Right Side Delivery Comments (Free Text/Narrative):: Flaquita is a 25 year old G2 now P2 at 40 weeks and 4 days today. She is here for induction of labor with a mclean score of 8 on admission and already mild c ontracting. Pitocin was titrated throughout the day per protocol. She tolerated labor pains well with the use of movement, position changes, hydrotherapy, and nitrous oxide. She was 9.5cm dilated at 1230 and involuntarily grunting/pushing. Her cervix was noted to be somewhat swollen, so we encouraged her to stop pushing. Baby was hard to trace with position changes and the external monitor but able to dop tone for 115bpm. She got up to the bathroom and then had an overwhelming urge to push at 1250 and was found to be complete. She delivered a baby boy 1259 via spontaneous vaginal delivery in the JOVANNI with a double nuchal cord that was reduced. He was dried and stimulated, APGARs were 8 and 9 at 1 and 5 minutes respectively. He weighed 6lbs 13oz and had a 3 vessel cord. Placenta was expressed spontaneously intact. There was no episiotomy and no tear. EBL 200. Mother to recovery room in stable condition. to nursery in stable condition. Stages of Labor: 1st: [id number] 2nd [id number] 3rd [id number] - General Info Date of Service: 02/22/21 Admission Dx/Problem (Free Text): Admission Diagnosis/Problem Admission Diagnosis/Problem 02/22/21 08:15 Normal spontaneous vaginal delivery Functional Status: Reports: Pain Controlled, Tolerating Diet, Ambulating, Urinating - Review of Systems General: Reports: No Symptoms HEENT: Reports: No Symptoms Pulmonary: Reports: No Symptoms Cardiovascular: Reports: No Symptoms Gastrointestinal: Reports: No Symptoms Genitourinary: Reports: No Symptoms Musculoskeletal: Reports: No Symptoms Skin: Reports: No Symptoms Neurological: Reports: No Symptoms Psychiatric: Reports: No Symptoms - Patient Data Vitals - Most Recent: Last Vital Signs Temp Pulse 76 02/22/21 08:57 Resp BP 118/70 02/22/21 08:57 Pulse Ox 99 02/22/21 08:57 Weight - Most Recent: 82.554 kg Lab Results Last 24 Hours: Laboratory Results - last 24 hr 02/22/21 02/22/21 02/22/21 Range/Units 07:20 07:21 07:22 WBC 11.4 H (4.5-11.0) K/uL RBC 4.17 (3.30-5.50) M/uL Hgb 11.8 L (12.0-15.0) g/dL Hct 35.9 L (36.0-48.0) % MCV 86 (80-98) fL MCH 28 (27-31) pg MCHC 33 (32-36) % Plt Count 233 (150-400) K/uL Neut % (Auto) 79.1 H (36-66) % Lymph % (Auto) 14.3 L (24-44) % [place] % (Auto) 5.9 (2-6) % Eos % (Auto) 0.4 L (2-4) % Baso % (Auto) 0.3 (0-1) % Urine Color Yellow (YELLOW) Urine Appearance Clear (CLEAR) Urine pH 7.0 (5.0-8.0) Ur Specific [place] 1.020 (1.008-1.030) Urine Protein Negative (NEGATIVE) mg/dL Urine Glucose (UA) Negative (NEGATIVE) mg/dL Urine Ketones Negative (NEGATIVE) mg/dL Urine Occult Blood Trace-intact H (NEGATIVE) Urine Nitrite Negative (NEGATIVE) Urine Bilirubin Negative (NEGATIVE) Urine Urobilinogen 0.2 (0.2-1.0) EU/dL Ur Leukocyte Esterase Moderate H (NEGATIVE) Urine RBC 0-5 (0-5) Urine WBC 5-10 H (0-5) Ur Epithelial Cells Moderate Amorphous Sediment Not seen Urine Bacteria Few Urine Mucus Not seen Urine Opiates Screen Negative (NEGATIVE) Ur Oxycodone Screen Negative (NEGATIVE) Urine Methadone Screen Negative (NEGATIVE) Ur Propoxyphene Screen Negative (NEGATIVE) Ur Barbiturates Screen Negative (NEGATIVE) Ur Tricyclics Screen Negative (NEGATIVE) Ur Phencyclidine Scrn Negative (NEGATIVE) Ur Amphetamine Screen Negative (NEGATIVE) U Methamphetamines Scrn Negative (NEGATIVE) Urine MDMA Screen Negative (NEGATIVE) U Benzodiazepines Scrn Negative (NEGATIVE) U Cocaine Metab Screen Negative (NEGATIVE) U Marijuana (THC) Screen Negative (NEGATIVE) SARS CoV-2 RNA Rapid ROSA ISELA 02/22/21 Range/Units 11:11 WBC (4.5-11.0) K/uL RBC (3.30-5.50) M/uL Hgb (12.0-15.0) g/dL Hct (36.0-48.0) % MCV (80-98) fL MCH (27-31) pg MCHC (32-36) % Plt Count (150-400) K/uL Neut % (Auto) (36-66) % Lymph % (Auto) (24-44) % [place] % (Auto) (2-6) % Eos % (Auto) (2-4) % Baso % (Auto) (0-1) % Urine Color (YELLOW) Urine Appearance (CLEAR) Urine pH (5.0-8.0) Ur Specific [place] (1.008-1.030) Urine Protein (NEGATIVE) mg/dL Urine Glucose (UA) (NEGATIVE) mg/dL Urine Ketones (NEGATIVE) mg/dL Urine Occult Blood (NEGATIVE) Urine Nitrite (NEGATIVE) Urine Bilirubin (NEGATIVE) Urine Urobilinogen (0.2-1.0) EU/dL Ur Leukocyte Esterase (NEGATIVE) Urine RBC (0-5) Urine WBC (0-5) Ur Epithelial Cells Amorphous Sediment Urine Bacteria Urine Mucus Urine Opiates Screen (NEGATIVE) Ur Oxycodone Screen (NEGATIVE) Urine Methadone Screen (NEGATIVE) Ur Propoxyphene Screen (NEGATIVE) Ur Barbiturates Screen (NEGATIVE) Ur Tricyclics Screen (NEGATIVE) Ur Phencyclidine Scrn (NEGATIVE) Ur Amphetamine Screen (NEGATIVE) U Methamphetamines Scrn (NEGATIVE) Urine MDMA Screen (NEGATIVE) U Benzodiazepines Scrn (NEGATIVE) U Cocaine Metab Screen (NEGATIVE) U Marijuana (THC) Screen (NEGATIVE) SARS CoV-2 RNA Rapid ROSA ISELA Negative Med Orders - Current: Current Medications Acetaminophen (Acetaminophen 325 Mg Tab, 50 Tab Bulk Bottle) 0 mg PO Q4H PRN PRN Reason: Pain Benzocaine (Benzocaine 20% Top [place] 56 Gm Bottle) 0 gm TOP Q4H PRN PRN Reason: Perineal Comfort Measure Calcium Carbonate/Glycine (Calcium Carbonate 500 Mg Tab.Chew) 1,000 mg PO Q2H PRN PRN Reason: Indigestion Docusate Sodium (Docusate Sodium 100 Mg Cap) 100 mg PO BID PRN PRN Reason: Constipation Emollient Ointment (Lanolin 100% Cream 40 Gm Tube) 1 gm TOP ASDIRECTED PRN PRN Reason: Sore Nipples Lactated Ringer's (Ringers, Lactated) 1,000 mls @ 125 mls/hr IV ASDIRECTED JESSIKA Last Admin: 02/22/21 08:48 Dose: 125 mls/hr Documented by: Oxytocin/Sodium Chloride (Pitocin In Ns 20 Units/1,000 Ml) 20 unit in 1,000 mls @ 6 mls/hr IV TITRATE JESSIKA; Protocol Last Titration: 02/22/21 10:32 Dose: 6 munits/min, 18 mls/hr Documented by: Ibuprofen (Ibuprofen 200 Mg Tab, 24 Tab Bulk Bottle) 600 mg PO Q6H PRN PRN Reason: Pain Ondansetron HCl (Ondansetron 4 Mg/2 Ml Sdv) 4 mg IV Q4H PRN PRN Reason: Nausea/Vomiting Last Admin: 02/22/21 11:19 Dose: 4 mg Documented by: Sodium Chloride (Sodium Chloride 0.9% 10 Ml Syringe) 10 ml FLUSH ASDIRECTED PRN PRN Reason: Keep Vein Open Discontinued Medications Fentanyl (Fentanyl 100 Mcg/2 Ml Sdv) Confirm Administered Dose 100 mcg .ROUTE .STK-MED ONE Stop: 02/22/21 13:06 Misoprostol (Misoprostol 50 Mcg (1/2 Of 100 Mcg) Tab) 25 mcg VAG ONETIME ONE Stop: 02/22/21 07:22 Last Admin: 02/22/21 08:34 Dose: Not Given Documented by: Misoprostol (Misoprostol 50 Mcg (1/2 Of 100 Mcg) Tab) 50 mcg VAG ONETIME ONE Stop: 02/22/21 07:23 Last Admin: 02/22/21 08:34 Dose: Not Given Documented by: - Exam General: Alert, Oriented HEENT: Pupils Equal, Pupils Reactive, EOMI, Mucous Membr. Moist/[place] Neck: Supple Lungs: Clear to Auscultation, Normal Respiratory Effort Cardiovascular: Regular Rate, Regular Rhythm GI/Abdominal Exam: Normal Bowel Sounds, Soft, Non-Tender, No Organomegaly, No Distention, No Abnormal Bruit, No Mass, Pelvis Stable (Female) Exam: Normal External Exam, Normal Speculum Exam, Normal Bimanual Exam Back Exam: Normal Inspection, Full Range of Motion Extremities: Normal Inspection, Normal Range of Motion, Non-Tender, No Pedal Edema, Normal Capillary Refill Skin: Warm, Dry, Intact Neurological: No New Focal Deficit Psy/Mental Status: Alert, Normal Affect, Normal Mood - Problem List & Annotations (1) Encounter for induction of labor SNOMED Code(s): 680842621 Code(s): Z34.90 - ENCNTR FOR SUPRVSN OF NORMAL , UNSP, UNSP TRIMESTER Status: Acute Current Visit: Yes (2) SNOMED Code(s): 78393391 Code(s): Z34.90 - ENCNTR FOR SUPRVSN OF NORMAL , UNSP, UNSP TRIMESTER Status: Acute Current Visit: No Qualifiers: Weeks of gestation: 40 weeks Qualified Code(s): Z3A.40 - 40 weeks gestation of (3) Normal spontaneous vaginal delivery SNOMED Code(s): 87180131, 729412385 Code(s): O80 - ENCOUNTER FOR FULL-TERM UNCOMPLICATED DELIVERY Status: Acute Current Visit: Yes (4) () SNOMED Code(s): 461563980 Code(s): Z78.9 - OTHER SPECIFIED HEALTH STATUS Status: Acute Current Visit: No - Problem List Review Problem List Initiated/Reviewed/Updated: Yes - Assessment Assessment:: 02/22/21 without complications No lacerations Adequate partner support GBS negative - Plan Plan:: 02/22/21 Assessment: here at 40weeks 4 days Induction of labor Mclean score of 8 GBS negative Intends to breastfeed Desires epidural at some point in labor Adequate partner support Plan: Begin pitocin per protocol Continuous EFM Encourage oral hydration and nutrition Encourage walking, movement, and position change Recheck cervix in a few hours Plan: Routine PP cares Encourage Monitor bleeding Expect discharge at 24-48 hours <Denisa Loaiza - Last Filed: 02/22/21 13:56> L & D Note - Delivery Note Delivery Comments (Free Text/Narrative):: Doptone while pushing 115-130, not tracing due to mothers position and movement. No decelerations heard during doptone. There were no vaginal, perineal, or cervical lacerations. Pitocin given for third stage management. - Patient Data Vitals - Most Recent: Last Vital Signs Temp Pulse 76 02/22/21 08:57 Resp BP 118/70 02/22/21 08:57 Pulse Ox 99 02/22/21 08:57 Lab Results Last 24 Hours: Laboratory Results - last 24 hr 02/22/21 02/22/21 02/22/21 Range/Units 07:20 07:21 07:22 WBC 11.4 H (4.5-11.0) K/uL RBC 4.17 (3.30-5.50) M/uL Hgb 11.8 L (12.0-15.0) g/dL Hct 35.9 L (36.0-48.0) % MCV 86 (80-98) fL MCH 28 (27-31) pg MCHC 33 (32-36) % Plt Count 233 (150-400) K/uL Neut % (Auto) 79.1 H (36-66) % Lymph % (Auto) 14.3 L (24-44) % [place] % (Auto) 5.9 (2-6) % Eos % (Auto) 0.4 L (2-4) % Baso % (Auto) 0.3 (0-1) % Urine Color Yellow (YELLOW) Urine Appearance Clear (CLEAR) Urine pH 7.0 (5.0-8.0) Ur Specific [place] 1.020 (1.008-1.030) Urine Protein Negative (NEGATIVE) mg/dL Urine Glucose (UA) Negative (NEGATIVE) mg/dL Urine Ketones Negative (NEGATIVE) mg/dL Urine Occult Blood Trace-intact H (NEGATIVE) Urine Nitrite Negative (NEGATIVE) Urine Bilirubin Negative (NEGATIVE) Urine Urobilinogen 0.2 (0.2-1.0) EU/dL Ur Leukocyte Esterase Moderate H (NEGATIVE) Urine RBC 0-5 (0-5) Urine WBC 5-10 H (0-5) Ur Epithelial Cells Moderate Amorphous Sediment Not seen Urine Bacteria Few Urine Mucus Not seen Urine Opiates Screen Negative (NEGATIVE) Ur Oxycodone Screen Negative (NEGATIVE) Urine Methadone Screen Negative (NEGATIVE) Ur Propoxyphene Screen Negative (NEGATIVE) Ur Barbiturates Screen Negative (NEGATIVE) Ur Tricyclics Screen Negative (NEGATIVE) Ur Phencyclidine Scrn Negative (NEGATIVE) Ur Amphetamine Screen Negative (NEGATIVE) U Methamphetamines Scrn Negative (NEGATIVE) Urine MDMA Screen Negative (NEGATIVE) U Benzodiazepines Scrn Negative (NEGATIVE) U Cocaine Metab Screen Negative (NEGATIVE) U Marijuana (THC) Screen Negative (NEGATIVE) SARS CoV-2 RNA Rapid ROSA ISELA 02/22/21 Range/Units 11:11 WBC (4.5-11.0) K/uL RBC (3.30-5.50) M/uL Hgb (12.0-15.0) g/dL Hct (36.0-48.0) % MCV (80-98) fL MCH (27-31) pg MCHC (32-36) % Plt Count (150-400) K/uL Neut % (Auto) (36-66) % Lymph % (Auto) (24-44) % [place] % (Auto) (2-6) % Eos % (Auto) (2-4) % Baso % (Auto) (0-1) % Urine Color (YELLOW) Urine Appearance (CLEAR) Urine pH (5.0-8.0) Ur Specific [place] (1.008-1.030) Urine Protein (NEGATIVE) mg/dL Urine Glucose (UA) (NEGATIVE) mg/dL Urine Ketones (NEGATIVE) mg/dL Urine Occult Blood (NEGATIVE) Urine Nitrite (NEGATIVE) Urine Bilirubin (NEGATIVE) Urine Urobilinogen (0.2-1.0) EU/dL Ur Leukocyte Esterase (NEGATIVE) Urine RBC (0-5) Urine WBC (0-5) Ur Epithelial Cells Amorphous Sediment Urine Bacteria Urine Mucus Urine Opiates Screen (NEGATIVE) Ur Oxycodone Screen (NEGATIVE) Urine Methadone Screen (NEGATIVE) Ur Propoxyphene Screen (NEGATIVE) Ur Barbiturates Screen (NEGATIVE) Ur Tricyclics Screen (NEGATIVE) Ur Phencyclidine Scrn (NEGATIVE) Ur Amphetamine Screen (NEGATIVE) U Methamphetamines Scrn (NEGATIVE) Urine MDMA Screen (NEGATIVE) U Benzodiazepines Scrn (NEGATIVE) U Cocaine Metab Screen (NEGATIVE) U Marijuana (THC) Screen (NEGATIVE) SARS CoV-2 RNA Rapid ROSA ISELA Negative Med Orders - Current: Current Medications Acetaminophen (Acetaminophen 325 Mg Tab, 50 Tab Bulk Bottle) 0 mg PO Q4H PRN PRN Reason: Pain Benzocaine (Benzocaine 20% Top [place] 56 Gm Bottle) 0 gm TOP Q4H PRN PRN Reason: Perineal Comfort Measure Calcium Carbonate/Glycine (Calcium Carbonate 500 Mg Tab.Chew) 1,000 mg PO Q2H PRN PRN Reason: Indigestion Docusate Sodium (Docusate Sodium 100 Mg Cap) 100 mg PO BID PRN PRN Reason: Constipation Emollient Ointment (Lanolin 100% Cream 40 Gm Tube) 1 gm TOP ASDIRECTED PRN PRN Reason: Sore Nipples Lactated Ringer's (Ringers, Lactated) 1,000 mls @ 125 mls/hr IV ASDIRECTED JESSIKA Last Admin: 02/22/21 08:48 Dose: 125 mls/hr Documented by: Oxytocin/Sodium Chloride (Pitocin In Ns 20 Units/1,000 Ml) 20 unit in 1,000 mls @ 6 mls/hr IV TITRATE JESSIKA; Protocol Last Titration: 02/22/21 10:32 Dose: 6 munits/min, 18 mls/hr Documented by: Ibuprofen (Ibuprofen 200 Mg Tab, 24 Tab Bulk Bottle) 600 mg PO Q6H PRN PRN Reason: Pain Ondansetron HCl (Ondansetron 4 Mg/2 Ml Sdv) 4 mg IV Q4H PRN PRN Reason: Nausea/Vomiting Last Admin: 02/22/21 11:19 Dose: 4 mg Documented by: Sodium Chloride (Sodium Chloride 0.9% 10 Ml Syringe) 10 ml FLUSH ASDIRECTED PRN PRN Reason: Keep Vein Open Discontinued Medications Fentanyl (Fentanyl 100 Mcg/2 Ml Sdv) Confirm Administered Dose 100 mcg .ROUTE .STK-MED ONE Stop: 02/22/21 13:06 Fentanyl (Fentanyl 100 Mcg/2 Ml Sdv) 50 mcg IVPUSH ONETIME ONE Stop: 02/22/21 13:42 Misoprostol (Misoprostol 50 Mcg (1/2 Of 100 Mcg) Tab) 25 mcg VAG ONETIME ONE Stop: 02/22/21 07:22 Last Admin: 02/22/21 08:34 Dose: Not Given Documented by: Misoprostol (Misoprostol 50 Mcg (1/2 Of 100 Mcg) Tab) 50 mcg VAG ONETIME ONE Stop: 02/22/21 07:23 Last Admin: 02/22/21 08:34 Dose: Not Given Documented by: - My Orders Last 24 Hours: My Active Orders 02/22/21 07:20 OB Check [OM.PC] Click To Edit 02/22/21 Breakfast Regular Diet [DIET] 02/22/21 08:12 Up ad Cheryle [RC] ASDIRECTED Calcium Carbonate [Tums] 1,000 mg PO Q2H PRN Ondansetron [Zofran] 4 mg IV Q4H PRN Sodium Chloride 0.9% [Saline Flush] 10 ml FLUSH ASDIRECTED PRN DVT/VTE Prophylaxis Reflex [OM.PC] Routine Resuscitation Status Routine 02/22/21 08:13 Patient Status [ADT] Routine Communication Order [RC] ASDIRECTED Non Stress Test [RC] Click to Edit Notify Provider [RC] PRN Vital Signs [RC] PER UNIT ROUTINE Saline Lock Insert [OM.PC] Routine 02/22/21 08:15 Lactated Ringers [Ringers, Lactated] 1,000 ml IV ASDIRECTED 02/22/21 08:17 Notify Provider Vital Signs [RC] PRN VTE/DVT Education [RC] Click to Edit 02/22/21 08:30 Oxytocin/Normal Saline [Pitocin in NS 20 Units/1,000 ML] 20 unit in 1,000 ml IV TITRATE 02/22/21 13:15 Patient Status [ADT] Routine Vital Signs [RC] PFP Consult to Telephoto Installer [CONS] Routine Benzocaine [Dgfa-K-Rumslhb 20% [place]] See Dose Instructions TOP Q4H PRN Docusate Sodium [Colace] 100 mg PO BID PRN Lanolin [Lansinoh HPA] 1 gm TOP ASDIRECTED PRN Assess Lochia [WOMSER] Per Unit Routine Assess Uterine Involution [WOMSER] Per Unit Routine 02/22/21 13:16 Ice Therapy [OM.PC] Per Unit Routine Perineal Care [OM.PC] Per Unit Routine 02/22/21 13:17 Acetaminophen [Tylenol Bulk Bottle] See Dose Instructions PO Q4H PRN Ibuprofen [Motrin Bulk Bottle] 600 mg PO Q6H PRN 02/23/21 05:11 CBC WITH AUTO DIFF [HEME] AM
[2021-02-22] MEDS ORDERED: fentaNYL 100 MCG/2 ML SDV IVPUSH ONE (13:41)
--- NOTE | 2021-02-23 14:18 | PCM.DCSUM1 ---
Discharge Summary - Hospital Course Free Text/Narrative:: Patient is a 25yo who presented for an induction of labor at 40 4/7 on 02/22/21 0730, and delivered at 1259pm. Patient was induced with pitocin. Patient said her delivery was painful, but uncomplicated. She feels well and says her lochia decreased greatly today and she passed a small clot. She denies any signficant pain. She also denies any pain, SOB, CP or other concerns. She says she feels well and feels ready to go home. She does not have any concerns that have not been addressed. She feels the baby is latching and feeding well and she does not have concerns about this. - Discharge Data Discharge Date: 02/23/21 Discharge Disposition: Home, Self-Care 01 Condition: Good - Referral to Home Health Primary Care Physician: PCP None - Patient Summary/Data Consults: Consultations 02/22/21 13:15 Consult to Sound Mixer [CONS] Routine Comment: Physician Instructions: - Discharge Plan Home Medications: Home Meds Prenat 115/Iron Fum/Folic/Dss [ 19 Tablet] 1 each PO BEDTIME 09/26/17 [History] Calcium Carbonate [Calcium] 500 mg PO DAILY 02/22/21 [History] - Discharge Summary/Plan Comment DC Time >30 min.: Yes Total # of Minutes for Discharge Time: 35 Discharge Summary/Plan Comment: patient and baby are ready to DC - General Info Date of Service: 02/23/21 - Review of Systems General: Reports: No Symptoms HEENT: Reports: No Symptoms Pulmonary: Reports: No Symptoms Cardiovascular: Reports: No Symptoms Gastrointestinal: Reports: No Symptoms Genitourinary: Reports: No Symptoms Musculoskeletal: Reports: No Symptoms Skin: Reports: No Symptoms Neurological: Reports: No Symptoms Psychiatric: Reports: No Symptoms - Patient Data Vitals - Most Recent: Last Vital Signs Temp 36.6 C 02/23/21 07:00 Pulse 97 02/23/21 07:00 Resp 16 02/23/21 07:00 BP 103/66 02/23/21 07:00 Pulse Ox 99 02/23/21 07:00 Weight - Most Recent: 82.554 kg Lab Results - Last 24 hrs: Laboratory Results - last 24 hr 02/23/21 Range/Units 05:59 WBC 13.4 H (4.5-11.0) K/uL RBC 3.98 (3.30-5.50) M/uL Hgb 11.4 L (12.0-15.0) g/dL Hct 34.3 L (36.0-48.0) % MCV 86 (80-98) fL MCH 29 (27-31) pg MCHC 33 (32-36) % Plt Count 205 (150-400) K/uL Neut % (Auto) 78.2 H (36-66) % Lymph % (Auto) 13.7 L (24-44) % [place] % (Auto) 7.4 H (2-6) % Eos % (Auto) 0.6 L (2-4) % Baso % (Auto) 0.1 (0-1) % Med Orders - Current: Current Medications Acetaminophen (Acetaminophen 325 Mg Tab, 50 Tab Bulk Bottle) 0 mg PO Q4H PRN PRN Reason: Pain Last Admin: 02/22/21 14:24 Dose: 325 mg Documented by: Benzocaine (Benzocaine 20% Top [place] 56 Gm Bottle) 0 gm TOP Q4H PRN PRN Reason: Perineal Comfort Measure Last Admin: 02/22/21 14:25 Dose: 1 applic Documented by: Calcium Carbonate/Glycine (Calcium Carbonate 500 Mg Tab.Chew) 1,000 mg PO Q2H PRN PRN Reason: Indigestion Docusate Sodium (Docusate Sodium 100 Mg Cap) 100 mg PO BID PRN PRN Reason: Constipation Emollient Ointment (Lanolin 100% Cream 40 Gm Tube) 1 gm TOP ASDIRECTED PRN PRN Reason: Sore Nipples Last Admin: 02/22/21 14:25 Dose: 1 applic Documented by: Lactated Ringer's (Ringers, Lactated) 1,000 mls @ 125 mls/hr IV ASDIRECTED JESSIKA Last Admin: 02/22/21 08:48 Dose: 125 mls/hr Documented by: Oxytocin/Sodium Chloride (Pitocin In Ns 20 Units/1,000 Ml) 20 unit in 1,000 mls @ 6 mls/hr IV TITRATE JESSIKA; Protocol Last Titration: 02/22/21 10:32 Dose: 6 munits/min, 18 mls/hr Documented by: Ibuprofen (Ibuprofen 200 Mg Tab, 24 Tab Bulk Bottle) 600 mg PO Q6H PRN PRN Reason: Pain Last Admin: 02/22/21 14:24 Dose: 600 mg Documented by: Ondansetron HCl (Ondansetron 4 Mg/2 Ml Sdv) 4 mg IV Q4H PRN PRN Reason: Nausea/Vomiting Last Admin: 02/22/21 11:19 Dose: 4 mg Documented by: Sodium Chloride (Sodium Chloride 0.9% 10 Ml Syringe) 10 ml FLUSH ASDIRECTED PRN PRN Reason: Keep Vein Open Discontinued Medications Fentanyl (Fentanyl 100 Mcg/2 Ml Sdv) Confirm Administered Dose 100 mcg .ROUTE .STK-MED ONE Stop: 02/22/21 13:06 Last Admin: 02/22/21 14:15 Dose: Not Given Documented by: Fentanyl (Fentanyl 100 Mcg/2 Ml Sdv) 50 mcg IVPUSH ONETIME ONE Stop: 02/22/21 13:42 Last Admin: 02/22/21 13:41 Dose: 50 mcg Documented by: Misoprostol (Misoprostol 50 Mcg (1/2 Of 100 Mcg) Tab) 25 mcg VAG ONETIME ONE Stop: 02/22/21 07:22 Last Admin: 02/22/21 08:34 Dose: Not Given Documented by: Misoprostol (Misoprostol 50 Mcg (1/2 Of 100 Mcg) Tab) 50 mcg VAG ONETIME ONE Stop: 02/22/21 07:23 Last Admin: 02/22/21 08:34 Dose: Not Given Documented by: - Exam General: Reports: Alert, Oriented HEENT: Reports: Pupils Equal, Pupils Reactive, EOMI, Mucous Membr. Moist/[place] Neck: Reports: Supple Lungs: Reports: Clear to Auscultation, Normal Respiratory Effort Cardiovascular: Reports: Regular Rate, Regular Rhythm GI/Abdominal Exam: Normal Bowel Sounds, Soft, Non-Tender, No Organomegaly, No Distention, No Abnormal Bruit, No Mass, Pelvis Stable (Female) Exam: Deferred Rectal (Female) Exam: Deferred Back Exam: Reports: Normal Inspection, Full Range of Motion Extremities: Normal Inspection, Normal Range of Motion, Non-Tender, No Pedal Edema, Normal Capillary Refill Skin: Reports: Warm, Dry, Intact Wound/Incisions: Reports: Healing Well Neurological: Reports: No New Focal Deficit Psy/Mental Status: Reports: Alert, Normal Affect, Normal Mood
== END 2021-02-23 15:23 | disposition home or self-care (01) | DRG 807 ==
LOC: JP.OB 07:11 → OBSVTOIN 12:59 → JP.MS 16:40
PROVIDERS: ADMIT Advanced Practice Midwife; ATTEND Advanced Practice Midwife
PROC: 10E0XZZ Delivery of Products of Conception, External Approach (ICD-10-PCS; principal; 2021-02-22)
PROC: 3E033VJ Introduction of Other Hormone into Peripheral Vein, Percutaneous Approach (ICD-10-PCS; 2021-02-22)
DX: O48.0 Post-term pregnancy (principal); Z37.0 Single live birth; O69.81X0 Labor and delivery complicated by cord around neck, without compression, not applicable or unspecified; Z20.822 Contact with and (suspected) exposure to COVID-19; Z3A.40 40 weeks gestation of pregnancy; Z88.0 Allergy status to penicillin; Z79.899 Other long term (current) drug therapy
CPT/HCPCS: 36415; 80305-QW; 81001; 85025; 99211; A9270-GY; J2405; J2590; J3010; J7120; U0002